=== PATIENT | male | born 1965 | race Caucasian/White ===

== ENCOUNTER 2017-11-04 08:38 | Emergency (ER) | payer MEDICAID ==
[2017-11-04 08:43] VITALS: RESP 20
[2017-11-04] MEDS ORDERED: BENZONATATE 100 MG CAP PO ONE (09:05)
[2017-11-04] MEDS ORDERED: predniSONE 20 MG TAB PO ONE (09:05)
--- NOTE | 2017-11-04 09:19 | EDPHY ---
General Narrative: CHIEF COMPLAINT: Cough, headache, "lung pain" HISTORY OF PRESENT ILLNESS: Patient presents with 2 days history of cough, headache, fever, malaise, "lung pain." He says that he slipped outside Tuesday night and "I could feel me getting sick when the wind came in." Tuesday he woke with the above complaints. They are moderate to severe. Worsening over the past 2 days. No chest pain but does have a painful cough. The cough is nonproductive. Thinks he has had a fever. He also had some low back pain with this. No urinary complaints. No abdominal pain. No neck pain or stiffness. No other associated complaints or modifying factors. REVIEW OF SYSTEMS: Ten systems reviewed and are negative unless otherwise noted in the HPI PCP: None SPECIALISTS: None PAST MEDICAL HISTORY: Denies PAST SURGICAL HISTORY: Denies SOCIAL HISTORY: None smoker. Quit drinking alcohol 1 year ago. No drug use. Does not work FAMILY HISTORY: Noncontributory EXAMINATION General Appearance: Alert, no distress Head: normocephalic, atraumatic Eyes: Pupils equal and round, no conjunctival pallor or injection ENT, Mouth: Mucous membranes moist. airway patent Neck: Normal inspection, supple, non-tender. Supple without meningeal signs Respiratory: Lungs are clear to auscultation. No wheezing. No rhonchi or crackles. No diminishment. No consolidation. No retractions or distress Cardiovascular: Regular rate and rhythm. No murmur Gastrointestinal: Abdomen is soft and nontender Back: non-tender, no bony abnormalities Neurological: A&O, nonfocal, normal gait Skin: Warm and dry, no rash. No petechiae or purpura Extremities: Nontender, no pedal edema Psychiatric: Mood and affect normal DIFFERENTIAL DIAGNOSES: Including but not limited to influenza, viral bronchitis, bacterial bronchitis, community-acquired pneumonia, pleurisy, pericarditis MDM: 9:05 a.m. Cough and flu-like symptoms with normal vital signs. I attempted to obtain a chest x-ray to evaluate for pneumonia but the patient is declining. He has consented to an influenza test. He is in no acute distress 10:10 a.m. Influenza test is negative. I have re-examined the patient. He is in no acute distress likely bronchitis versus community-acquired pneumonia. Given the patient's poor preventive care, current residence in the residential I will treat him with Patriciaomax and albuterol inhaler as needed. Also provide short course of antitussive medication. He will be referred to [facility] for outpatient care. He has ED precautions. He is comfortable this plan and discharged home stable condition. SUPERVISION: Patient was independently examined, but I discussed the case with my secondary supervising physician Dr. Coelho - History Smoking Status: Never smoked - Objective Vital Signs: Initial Vital Signs Temperature (C) 98.1 F 11/04/17 08:40 Heart Rate 100 11/04/17 08:40 Respiratory Rate 20 11/04/17 08:40 Blood Pressure 135/83 H 11/04/17 08:40 O2 Sat (%) 96 11/04/17 08:40 O2 Delivery Mode Room Air Allergies/Adverse Reactions: No Known Allergies Allergy (Unverified 11/04/17 08:40) Home Medications: Medication Instructions Recorded Acetaminophen/Codeine 300/30Mg 1 each PO Q6 PRN #7 tab 11/04/17 [Tylenol #3 (*)] Albuterol [Proventil Inhaler HFA 1 - 2 puffs IH Q4H PRN #1 mdi 11/04/17 (*)] Azithromycin [Zithromax] 250 mg PO DAILY #6 tab 11/04/17 Benzonatate [Tessalon Pearles (RX)] 100 mg PO Q8 PRN #7 cap 11/04/17 Laboratory Results: 11/04/17 09:10 Nasal Influenza A PCR NEGATIVE FOR FLU A (NEGATIVE) Nasal Influenza B PCR NEGATIVE FOR FLU B (NEGATIVE) Medications Given: Discontinued Medications Benzonatate (Tessalon Pearles) 200 mg PO EDNOW ONE Stop: 11/04/17 09:06 Last Admin: 11/04/17 09:17 Dose: 200 mg Prednisone (Prednisone) 60 mg PO EDNOW ONE Stop: 11/04/17 09:06 Last Admin: 11/04/17 09:17 Dose: 60 mg Departure - Departure Disposition: Home, Routine, Self-Care Clinical Impression: Acute bronchitis Qualifiers: Bronchitis organism: unspecified organism Qualified Code(s): J20.9 - Acute bronchitis, unspecified Condition: Good Instructions: Acute Bronchitis (ED), Community Acquired Pneumonia (ED) Additional Instructions: 1. Medications as prescribed as needed 2. Contact the [facility] as provided for outpatient follow-up 3. ED precautions as discussed Referrals: [facility],. [Clinic] - As per Instructions Prescriptions: Acetaminophen/Codeine 300/30Mg [Tylenol #3 (*)] 1 each PO Q6 PRN #7 tab PRN Reason: Cough, Mild Albuterol [Proventil Inhaler HFA (*)] 1 - 2 puffs IH Q4H PRN #1 mdi PRN Reason: Short Of Breath/Dyspnea Azithromycin [Zithromax] 250 mg PO DAILY #6 tab Benzonatate [Tessalon Pearles (RX)] 100 mg PO Q8 PRN #7 cap PRN Reason: Cough, Mild
--- NOTE | 2017-11-04 10:41 | ASMTLACE ---
LACE Length of stay for Answers: Less than 1 day current admission Acuity / Level of Answers: No Care: Did the patient have an inpatient admission? # of Emergency department Answers: 1-2 visits in the last 6 months Social determinants Answers: Homelessness (street, group home) Lack of community resources and/or lack of social support (no pcp, lives alone, transportation, mt d) Score: 8 Date Signed: 11/04/2017 10:41 AM Electronically Signed By:Karolina Miranda LCSW
[2017-11-04 10:48] VITALS: BP 133/68; PULSE 81; TEMP 98.8; O2SAT 94
--- NOTE | 2017-11-04 12:25 | ASMTCMCOM ---
CM Note CM Note Notes: PT in FED with Bronchitis. Pt records reflect that he is staying at [facility] and he has no PCP. Pt discharge instructed follow up with [facility]. This SW offered to schedule follow up visit, pt denied and stated that he would schedule follow up on his own. Date Signed: 11/04/2017 12:25 PM Electronically Signed By:Karolina Miranda LCSW
== END 2017-11-04 10:52 | disposition home or self-care (01) ==
DX: J20.9 Acute bronchitis, unspecified (principal)
CPT/HCPCS: J7512

== ENCOUNTER 2019-02-09 19:08 | Emergency (ER) | payer MEDICAID ==
--- NOTE | 2019-02-09 19:18 | EDPHY ---
H & P Smoking Status: Never smoked Time Seen by Provider: 02/09/19 19:12 HPI/ROS: CHIEF COMPLAINT: Abdominal pain for 2 days HISTORY OF PRESENT ILLNESS: Describes epigastric and upper abdominal pain intermittent and cramping for the last 2 days. Not associated with vomiting or diarrhea. No injury or trauma. No fever or chills. Says he feels bloated when he tries to urinate but no hematuria Or dysuria. Symptoms intermittent, mild sometimes and severe at others. Not better or worse with anything. He thinks he might have eaten a bad ham sandwich 2 days ago. REVIEW OF SYSTEMS: Eye: no change in vision ENT: no sore throat Cardiac: no chest pain or syncope Pulmonary: no cough or SOB Abdomen: HPI Musculoskeletal: no back pain Skin: no rash Neuro: no headache Constitutional: no fever : HPI A comprehensive 10 point review of systems is otherwise negative aside from elements mentioned in the history of present illness. PAST MEDICAL HISTORY: No previous abdominal surgeries, no diabetes, otherwise negative. Social history: Currently homeless, no alcohol for the last 2 and half years General Appearance: Alert and conversant, cooperative. Eyes: No scleral icterus. ENT, Mouth: Dry mucous membranes. Respiratory: Normal respiratory effort, breath sounds equal, lungs are clear to auscultation. Cardiovascular: Regular rate and rhythm. Gastrointestinal: Epigastric tenderness but no rebound or guarding and no McBurney's point tenderness. Negative Castro sign. No hernia. Normal male . Neurological: Alert, face symmetric, normal motor and sensory in extremities. Skin: Warm and dry, no rashes. Musculoskeletal: No peripheral edema. Psychiatric: Not agitated. Emergency Department course/MDM: Patient declined pain medication. IV normal saline and GI cocktail. CBC chemistry LFT and lipase and urinalysis. 2001: exam still with pain. Benadryl, phenergan, CT. 2049: Results discussed, Toradol 30 and lidocaine 100, treating for left-sided renal colic. Patient still declined narcotics. Normal creatinine, urine not suggestive of infection. Signed out to Marti plan inpatient versus DC depending on pain control. (Juan A Mendiola) Constitutional: Initial Vital Signs Temperature (C) 36.8 C 02/09/19 19:10 Heart Rate 98 02/09/19 19:10 Respiratory Rate 20 02/09/19 19:10 Blood Pressure 171/111 H 02/09/19 19:10 O2 Sat (%) 93 02/09/19 19:10 O2 Delivery Mode Room Air Allergies/Adverse Reactions: No Known Allergies Allergy (Unverified 02/09/19 19:10) Home Medications: Medication Instructions Recorded Acetaminophen/Codeine 300/30Mg 1 each PO Q6 PRN #7 tab 11/04/17 [Tylenol #3 (*)] Albuterol [Proventil Inhaler HFA 1 - 2 puffs IH Q4H PRN #1 mdi 11/04/17 (*)] Azithromycin [Zithromax] 250 mg PO DAILY #6 tab 11/04/17 Benzonatate [Tessalon Pearles (RX)] 100 mg PO Q8 PRN #7 cap 11/04/17 Ketorolac Tromethamine 10 mg PO Q6H PRN #16 tab 02/09/19 Medical Decision Making - Diagnostics Imaging: Discussed imaging studies w/ call center rn Radiologist - Diagnostics EKG Interpretation: 12-lead EKG interpreted by me; official reading is in computer system. My interpretation is sinus rhythm rate 80 normal intervals and no ischemic changes. (Juan A Mendiola) Other Provider: Patient signed out to me at shift change pending pain control and re- evaluation. On re-evaluation, patient says his pain is well controlled with NSAIDS and lidocaine here in the ED and he is tolerating PO. He has previously declined narcotics. Per plan from Dr. Mendiola, patient will be discharged. ( Tomas Kidd) - Data Points Laboratory Results: Laboratory Results 02/09/19 19:28 02/09/19 19:28 Medications Given: Discontinued Medications Al Hydroxide/Mg Hydroxide (Maalox Susp) 30 ml PO ONCE ONE Stop: 02/09/19 19:23 Last Admin: 02/09/19 19:31 Dose: 30 ml Diphenhydramine HCl (Benadryl Injection) 50 mg IVP EDNOW ONE Stop: 02/09/19 20:03 Last Admin: 02/09/19 20:08 Dose: 50 mg Hyoscyamine Sulfate (Levsin, Hyomax-Sl) 0.25 mg PO ONCE ONE Stop: 02/09/19 19:23 Last Admin: 02/09/19 19:31 Dose: 0.25 mg Sodium Chloride (Ns) 1,000 mls @ 0 mls/hr IV EDNOW ONE; Wide Open PRN Reason: Protocol Stop: 02/09/19 19:23 Last Admin: 02/09/19 19:31 Dose: 1,000 mls Lidocaine HCl 100 mg/ Sodium (Chloride) 110 mls @ 600 mls/hr IV EDNOW ONE Stop: 02/09/19 21:01 Last Admin: 02/09/19 21:06 Dose: 110 mls Ketorolac Tromethamine (Toradol) 30 mg IVP EDNOW ONE Stop: 02/09/19 20:49 Last Admin: 02/09/19 20:51 Dose: 30 mg Lidocaine (Lidocaine 2% Viscous) 15 ml PO ONCE ONE Stop: 02/09/19 19:23 Last Admin: 02/09/19 19:31 Dose: 15 ml Promethazine HCl (Phenergan) 12.5 mg IVP EDNOW ONE Stop: 02/09/19 20:03 Last Admin: 02/09/19 20:08 Dose: 12.5 mg Departure - Departure Disposition: Home, Routine, Self-Care Clinical Impression: Renal colic on left side Condition: Good Instructions: Renal Colic (ED) Additional Instructions: Follow-up with a urologist within one week. Return to the ED for fever, severe pain, inability to urinate. If you cannot obtain prescription of Toradol, you can take ibuprofen which is a very similar medication, as directed for pain. Referrals: Solomon Mckay MD [Medical Doctor] - As per Instructions (Follow-up with urologist next week in the office if you're still symptomatic.) Prescriptions: Ketorolac Tromethamine 10 mg PO Q6H PRN #16 tab PRN Reason: Pain/inflammation
[2019-02-09] MEDS ORDERED: LIDOCAINE 2% VISCOUS 15 ML UDCUP PO ONE (19:22)
[2019-02-09] MEDS ORDERED: MAG HYDROX/AL HYDROX/SIMETH 30 ML UDCUP PO ONE (19:22)
[2019-02-09] MEDS ORDERED: HYOSCYAMINE SULFATE 0.125 MG TAB PO ONE (19:22)
[2019-02-09] MEDS ORDERED: NS 1,000 ML IV ONE (19:22)
--- NOTE | 2019-02-09 19:44 | CPEKG ---
Test Reason : OPEN Blood Pressure : / mmHG Vent. Rate : 080 BPM Atrial Rate : 082 BPM P-R Int : 150 ms QRS Dur : 098 ms QT Int : 361 ms P-R-T Axes : 076 072 060 degrees QTc Int : 417 ms Sinus rhythm Confirmed by Juan A Mendiola ([id number]) on 02/09/2019 7:43:41 PM Referred By: Juan A Mendiola Confirmed By:Juan A Mendiola
[2019-02-09 19:55] LABS: PLATELET COUNT 259 10^3/uL (150-400)
[2019-02-09] MEDS ORDERED: PROMETHAZINE HCL 25 MG/ML INJ IVP ONE (20:02)
[2019-02-09] MEDS ORDERED: IOPAMIDOL (ISOVUE-300) 100 ML BTL ONE (20:05)
[2019-02-09] MEDS ORDERED: KETOROLAC 30 MG/1 ML SDV IVP ONE (20:48)
[2019-02-09] MEDS ORDERED: LIDOCAINE 1% 100 MG in NS 100 ML IV ONE (20:51)
[2019-02-09 21:47] VITALS: BP 148/92
== END 2019-02-09 22:27 | disposition home or self-care (01) ==
DX: N23 Unspecified renal colic (principal); E86.9 Volume depletion, unspecified; Z59.0 Homelessness
CPT/HCPCS: 96374; J1200; J1885; J2550; Q9967